=== PATIENT | male | born 1965 | race Caucasian/White ===

== ENCOUNTER 2016-08-14 04:02 | Emergency (ER) | payer OTHER ==
[~2016-08-14] VITALS: Ht 185.4 cm; Wt 122.4 kg
[2016-08-14 04:12] VITALS: BP 151/85; PULSE 64; RESP 16; TEMP 98.7; O2SAT 97
[2016-08-14] MEDS ORDERED: IBUP-232 PO ×2 (04:52→04:54)
--- NOTE | 2016-08-14 04:53 | PD ---
HPI Chief Complaint: Cold / Flu Symptoms Time Seen by Provider: 04:25 Travel History International Travel<30 days: No Contact w/Intl Traveler<30days: No Traveled to known affect area: No History of Present Illness HPI The patient is a 50-year-old male that for the last few days has noted bilateral parotid swelling. He has had rhinorrhea and a minimal cough and feels some head congestion. He did not had any fevers. He denies any history of sarcoid, TB, HIV and gets tested for HIV regularly [facility] [employer]. He denies any swelling of any other salivary glands. [facility] Past Medical History Gestational Age in Weeks: 2015 Inguinal Hernia: Yes Musculoskeletal: Yes (L KNEE MENISCUS REPAIR) Immunizations Current: Yes Tetanus Vaccination: < 5 Years Influenza Vaccination: Yes Social History Alcohol Use: Yes (OCC) Tobacco Use: No Allergies-Medications (Allergen,Severity, Reaction): Coded Allergies: No Known Allergies (Unverified , 08/14/16) Reported Meds & Prescriptions Reported Meds & Active Scripts Active No Active Prescriptions or Reported Medications Review of Systems Except as stated in HPI: all other systems reviewed are Neg Physical Exam Narrative GENERAL: Well-nourished, well-developed patient in minimal apparent distress with his bilateral parotid gland swelling. His vital signs are normal except for blood pressure 131/85. SKIN: Warm and dry. No skin rash is seen. HEAD: Normocephalic. EYES: No scleral icterus. No injection or drainage. NECK: Supple, trachea midline. No JVD or lymphadenopathy. CARDIOVASCULAR: Regular rate and rhythm without murmurs, gallops, or rubs. RESPIRATORY: Breath sounds equal bilaterally. No accessory muscle use. GASTROINTESTINAL: Abdomen soft, non-tender, nondistended. MUSCULOSKELETAL: No cyanosis, or edema. BACK: Nontender without obvious deformity. No CVA tenderness. ENT: Bilateral parotid gland swelling is noted. There is only very minimal discomfort when I press the parotid glands and there is no erythema over the parotid glands. There is no stone palpated in the parotid ducts. No pus is expressed at the opening of Stensen's duct. Data Data Last Documented VS Vital Signs Date Time Temp Pulse Resp B/P Pulse Ox O2 Delivery O2 Flow Rate FiO2 08/14/16 04:23 Room Air 08/14/16 04:12 98.7 64 16 151/85 97 MDM Medical Decision Making Medical Screen Exam Complete: Yes Emergency Medical Condition: Yes Medical Record Reviewed: Yes Differential Diagnosis Viral parotitis, bacterial parotitis, HIV parotitis, TB parotitis, sarcoid parotitis, sialolithiasis Narrative Course The patient has viral parotitis. Plan: The patient should increase liquid intake and is given Motrin 600 mg 3 times daily. If he experiences fever, severe pain he should immediately consult with otolaryngology. Diagnosis Primary Impression: Parotitis Additional Impression: Viral URI Additional Instructions: Drink increased liquids to decrease the viscosity of your salivary secretions. If you experience increased pain/swelling you should see an shoe folder immediately as this might be a bacterial infection. Med/Other Pt SpecificInfo: Prescription(s) given Scripts Ibuprofen 600 Mg Tza254 Mg PO TID #45 TAB Ref 0 Prov:Reg Bentley MD 08/14/16 Disposition: 01 DISCHARGE HOME Condition: Stable Reg Bentley MD Aug 14, 2016 04:53
== END 2016-08-14 05:12 | disposition home or self-care (01) ==
LOC: PHED 04:02
DX: K11.20 Sialoadenitis, unspecified (principal); J06.9 Acute upper respiratory infection, unspecified
CPT/HCPCS: 99283